=== PATIENT | male | born 1965 | race Caucasian/White ===

== ENCOUNTER 2017-04-12 06:24 | Emergency (ER) | payer BC ==
[~2017-04-12] VITALS: Ht 172.7 cm; Wt 79.4 kg
[~2017-04-12 06:24] MED LIST: ATOR10TA PO; SERT100T PO
[2017-04-12] MEDS ORDERED: HYDROMORPHONE 1 MG/1 ML DISP.SYRIN IV ONE ×2 (06:45→08:30)
[2017-04-12] MEDS ORDERED: IV NORMAL SALINE 1000 ML BAG IV ONE ×2 (06:45→08:30)
[2017-04-12] MEDS ORDERED: KETOROLAC TROMETHAMINE 15 MG INJ IV ONE (06:45)
[2017-04-12] MEDS ORDERED: ONDANSETRON 4 MG/2 ML VIAL IV ONE ×2 (06:45→08:30)
[2017-04-12 06:51] LABS: *BILIRUBIN,URIN NEGATIVE (NEGATIVE); *BLOOD, URINE 3+ (NEGATIVE); *CLARITY,URINE CLOUDY (CLEAR); *COLOR,URINE DARK YELLOW (YELLOW); *KETONES,URINE NEGATIVE (NEGATIVE); *PROTEIN,URINE 2+ (NEGATIVE); *UROBILINOGEN,URINE 0.2 E.U./dl (NORMAL); LEUKOCYTE ESTERASE ,URINE NEGATIVE (NEGATIVE); NITRITE, URINE NEGATIVE (NEGATIVE); PH,URINE 5.5 (5.0-8.0); UGLUCOSE NEGATIVE (NEGATIVE)
[2017-04-12] MEDS ORDERED: HYDROMORPHONE 2 MG/1 ML DISP.SYRIN ONE ×2 (06:58→08:41)
[2017-04-12] MEDS ORDERED: ONDANSETRON 4 MG/2 ML VIAL ONE ×2 (06:58→08:42)
[2017-04-12] MEDS ORDERED: KETOROLAC TROMETHAMINE 30 MG INJ ONE (06:58)
--- NOTE | 2017-04-12 07:07 | NUR ---
Pt back from CT, pain controlled
[2017-04-12 07:09] LABS: BACTERIA,URINE FEW /HPF (NONE SEEN); RBC,URINE TNTC /HPF (0-3); SQUAMOUS EPITHELIAL CELL,UR FEW /HPF (NONE SEEN); WBC,URINE NONE SEEN /HPF (0-3)
--- NOTE | 2017-04-12 08:50 | NUR ---
Pt's pain returned, now 03/18, was aware, ordered add'l meds, administered
--- NOTE | 2017-04-12 10:15 | NUR ---
Pain controlled, 2-11/16. Removed IV, 20g, right AC, intact, site okay, bandaged. Gave pt RX and d/c instructions, verbalized understanding.
[2017-04-12 10:24] VITALS: BP 138/81
== END 2017-04-12 10:05 | disposition home or self-care (01) ==
LOC: ER 06:25
DX: N20.1 Calculus of ureter (principal); G89.29 Other chronic pain; M54.9 Dorsalgia, unspecified; Z87.442 Personal history of urinary calculi
CPT/HCPCS: A4663; J1170; J1885; J2405; J7030

== ENCOUNTER 2018-07-17 22:08 | Emergency (ER) | payer BC ==
[~2018-07-17] VITALS: Ht 172.7 cm; Wt 81.6 kg
[2018-07-17] MEDS ORDERED: IV NORMAL SALINE 1000 ML BAG IV ONE (22:15)
[2018-07-17 22:29] LABS: BASOPHILS % (AUTO) 0.5 % (0.0-2.0); EOSINOPHILS # (AUTO) 0.1 K/uL (0.0-0.7); EOSINOPHILS % (AUTO) 0.6 % (0.0-7.0); HEMATOCRIT 50.3 % (36.7-47.1); HEMOGLOBIN 17.5 g/dL (12.5-16.3); LYMPHOCYTES # (AUTO) 3.2 K/uL (20.0-40.0); LYMPHOCYTES % (AUTO) 35.4 % (20.5-51.5); MEAN CORPUSCULAR HEMOGLOBIN 32.2 uug (23.8-33.4); MEAN CORPUSCULAR HGB CONC 35 g/dL (32.5-36.3); MEAN CORPUSCULAR VOLUME 92.3 fL (73.0-96.2); MONOCYTES % (AUTO) 10.8 % (0.0-11.0); NEUTROPHILS # (AUTO) 4.7 K/uL (1.8-8.9); NEUTROPHILS % (AUTO) 52.7 % (38.5-71.5); PLATELET COUNT (AUTO) 243 K/uL (152-348); RED BLOOD CELL COUNT(AUTO) 5.44 MIL/uL (4.06-5.63); WHITE BLOOD COUNT (AUTO) 8.9 K/uL (3.6-10.2)
--- NOTE | 2018-07-17 22:37 | NUR ---
Labs drawn. Urine sample sent to lab. Chest x-ray done. IV fluids infusing. Awaiting results. HR 109 on monitor. Pt denies any chest pain. Will continue to monitor.
[2018-07-17 22:41] LABS: CREATININE 1.5 mg/dL (0.6-1.3)
[2018-07-17 22:50] LABS: *AMPHETAMINE, URINE NEGATIVE (NEGATIVE); *BARBITURATE, URINE NEGATIVE (NEGATIVE); *CANNABINOID, URINE POSITIVE (NEGATIVE); *COCCAINE, URINE NEGATIVE (NEGATIVE); *OPIATE, URINE POSITIVE (NEGATIVE); *PHENCYCLIDINE SCREEN,URINE NEGATIVE (NEGATIVE)
[2018-07-17 22:57] LABS: BILIRUBIN,DIRECT 0.2 mg/dL (0.0-0.2); BILIRUBIN,TOTAL 0.8 mg/dL (0.2-1.0); TOTAL PROTEIN, SERUM 7.8 g/dL (6.4-8.2)
[2018-07-17] MEDS ORDERED: POTASSIUM CHLORIDE 20 MEQ TAB.PRT.SR ONE (23:04)
--- NOTE | 2018-07-17 23:12 | NUR ---
Patient discharged to home in stable conditon. Written and verbal after care instructions given. Patient verbalizes understanding of instructions. Pt ambulates out of ER in steady gait. All belongigns with pt. VSS. NAD noted.
--- NOTE | 2018-07-17 23:12 | NUR ---
IV removed. Catheter intact and site benign. Pressure and 4x4 gauze applied to site. No bleeding noted.
[2018-07-17 23:14] VITALS: BP 148/98
[2018-07-17] MEDS ORDERED: POTASSIUM CHLORIDE 20 MEQ TAB.PRT.SR PO ONE (23:15)
== END 2018-07-17 23:15 | disposition home or self-care (01) ==
LOC: ER 22:08
DX: R00.0 Tachycardia, unspecified (principal); E87.6 Hypokalemia; E78.00 Pure hypercholesterolemia, unspecified; G89.29 Other chronic pain; M54.9 Dorsalgia, unspecified
CPT/HCPCS: 36415; 70030-TC; 71045; 80307; 85025; 85730; 93005; A4663; J7030